=== PATIENT | male | born 1995 | race Caucasian/White ===

== ENCOUNTER 2022-10-10 08:20 | Outpatient (CLI) | payer OTHER, SELFPAY ==
--- NOTE | ~2022-10-10 | XR_ITS ---
EXAMINATION: CT abdomen pelvis wo con, XR abdomen/kub 1V DATE: 10/10/2022 08:40 INDICATION: Renal stone TECHNIQUE: Computed tomography (CT) of the abdomen and pelvis was performed without intravenous contr ast. The dose-length product was 314.88 mGy-cm. Automated exposure control and iterative reconstructi on technique were employed. KUB. COMPARISON: None. FINDINGS: Lung bases are unremarkable. Heart size is normal. No significant pleural or pericardial ef fusion. No significant vascular abnormality. No lymphadenopathy. Nonobstructive bowel gas pattern. The liver, spleen, adrenal glands, pancreas and kidneys are unremarkable. Gallbladder is present. The re is a cortical lesion of the proximal aspect of the left femur with ill-defined margins, likely zeynep ign. No acute osseous abnormality. No renal/ureteral stones or hydronephrosis. No renal or ureteral s tones. No hydronephrosis. KUB: Nonobstructive bowel gas pattern. No abnormal calcifications. No acute osseous abnormality. Smal l lytic lesion of the proximal femur is noted with sclerotic margins, likely benign. IMPRESSION: 1. No acute abdominal abnormality. Reviewed, dictated and finalized at location L. IMPRESSION: 1. No acute abdominal abnormality.
== END 2022-10-10 08:21 ==
PROVIDERS: PCP Urology; Visit Provider Urology
DX: N20.0 Calculus of kidney (principal)
CPT/HCPCS: 74018; 74176